=== PATIENT | female | born 1990 | race Caucasian/White ===

== ENCOUNTER → 2018-01-19 09:37 | Outpatient (CLI) | payer BC, SELFPAY ==
--- NOTE | 2018-01-19 09:45 | FL_ITS ---
FL upper GI w air HISTORY: ITS.REASON: EPIGASTRIC PAIN ORDERING PHYSICIAN: Simon Ribera MD PATIENT AGE: 27 years Comparison: None FINDINGS: The swallowing function and as such motility are normal. The esophagus, stomach, and duodenum have an unremarkable appearance. There is no evidence of hiatal hernia. No ulcer or mass evident. No mucosal abnormalities apparent. There is normal peristalsis. The duodenal C-loop is nondisplaced. FLUOROSCOPY TIME : 2 minutes and 23 seconds. IMPRESSION: Negative upper GI
== END ==
PROVIDERS: Family Provider Nurse Practitioner Family; PCP Emergency Medicine; Visit Provider Internal Medicine Adolescent Medicine
DX: R10.13 Epigastric pain (principal)
CPT/HCPCS: 74247

== ENCOUNTER 2020-10-17 21:33 | Emergency (ER) | payer BC, SELFPAY ==
[2020-10-17] VITALS (8 sets, daily range): BP systolic 120–134; BP diastolic 74–97; PULSE 52–77; RESP 16–22; TEMP 36.5–36.7; O2SAT 80–99; BMI 26.1
--- NOTE | 2020-10-17 21:47 | CT_ITS ---
PROCEDURE: CT ABDOMEN PELVIS W CON CLINICAL INDICATION: abd pain The COMPARISON: No exams were available for comparison TECHNIQUE: IV Contrast: 75ML Isovue 370 Oral Contrast None Axial images obtained with sagittal and coronal reformats. All CT scans at the facility use one or more dose reduction, viz: automated exposure control, ma/kV adjustment per patient size (including targeted exams where dose is matched to indication, i.e. head), or iterative reconstruction technique. FINDINGS: LOWER THORAX: No acute finding ABDOMEN & PELVIS: The liver, spleen, adrenal glands, and pancreas have an unremarkable appearance. No radiopaque gallstones evident. There is moderate right hydronephrosis and hydroureter secondary to a 3 mm stone at the right ureterovesical junction. No intestinal obstruction or free air. No evidence of appendicitis. There is a small amount fluid in the cul-de-sac. No acute bony findings are evident. IMPRESSION: 3 mm right ureterovesical junction stone causing moderate right obstructive uropathy. Dictated by: Romero Mello MD 10/18/2020 06:12 Romero Mello MD in [place] 10/18/2020 06:12
[2020-10-17 21:56] LABS: Basophils # 0.1 K/mm3 (0-0.2); Basophils % 0.7 % (0.1-2.0); Eosinophils # 0.3 K/mm3 (0.0-0.4); Eosinophils % 1.8 % (0.1-12.0); Hematocrit 38.1 % (37.0-47.0); Hemoglobin 12.7 g/dL (12.2-16.2); Lymphocytes # 6.5 K/mm3 (0.7-4.5); Mean Corpuscular HGB Conc 33.3 g/dL (31.8-35.4); Mean Corpuscular Hemoglobin 27.4 pg (27.0-31.2); Mean Corpuscular Volume 82.4 fl (81-99); Mean Platelet Volume 7.9 fl (7.4-10.4); Monocytes # 0.9 K/mm3 (0.1-1.0); Monocytes % 6.2 % (1.7-9.3); Neutrophils # 6.1 K/mm3 (1.8-7.8); Neutrophils % 44.3 % (37.0-80.0); Platelet Count 338 K/mm3 (142-424); Red Blood Count 4.63 M/mm3 (4.20-5.40); Red Cell Distribution Width 14.7 % (11.5-17.5); White Blood Count 13.8 K/mm3 (4.8-10.8)
[2020-10-17 22:01] LABS: Microscopic, Urine URINE MICROSCOPIC (MICROSCOPIC)
[2020-10-17 22:03] LABS: Appearance,Urine SL CLOUDY (Clear); Bilirubin,Urine Negative (Negative); Blood, Urine Negative (Negative); Color,Urine YELLOW (Yellow); Glucose,Urine (UA) Negative (Negative); Ketones,Urine Negative (Negative); Leukocyte Esterase,Urine Negative (Negative); Nitrate,Urine Negative (Negative); PH,Urine 6.5 (5.0-8.5); Protein,Urine TRACE (Negative); Specific Gravity, Urine >= 1.030 (1.005-1.030); Urobilinogen,Urine 0.2 EU/dl (0.2)
[2020-10-17 22:06] LABS: HCG Qualitative, Serum Negative (Negative)
[2020-10-17 22:07] LABS: Squamous Epithelial Cell,Urine 20-50 #/hpf (0-5); WBC,Urine Occasional #/hpf (0-3)
[2020-10-17 22:07] LABS: Alanine Aminotransferase 30 U/L (12-78); Albumin/Globulin Ratio 1.2 (1.1-1.8); Alkaline Phosphatase 90 U/L (38-126); Amylase 47 U/L (30-110); Anion Gap 14.5 mEq/L (5-15); Aspartate Amino Transferase 26 U/L (14-36); Bilirubin,Total 0.3 mg/dl (0.2-1.3); Blood Urea Nitrogen 8 mg/dl (7-17); Calcium 9.4 mg/dl (8.4-10.2); Carbon Dioxide 13 mmol/L (22.0-30.0); Chloride 116 mmol/L (98-107); Creatinine Clearance Estimated 125 mL/min (50-200); Estimated Glomerular Filt Rate 84 ml/min (>60); GFR (African American) 101 ML/MIN (>60); Globulin 3.3 g/dL (1.3-3.2); Glucose 123 mg/dl (74-100); Lipase 75 U/L (23-300); Potassium 3.5 mmoL/L (3.5-5.1); Sodium 140 mmol/L (136-145); Total Protein,Serum 7.3 g/dl (6.3-8.2)
[2020-10-17 22:12] LABS: C-Reactive Protein 7.8 mg/L (0-4)
--- NOTE | 2020-10-17 22:15 | HMH.EDNVD ---
ED Disposition Clinical Impression: Renal colic on right side Disposition: Home, Self-Care Condition on Discharge: Good Instructions: DI for Kidney Stones Additional Instructions: fluids and see pcp and urology for follow up Prescriptions: Tamsulosin HCl [Flomax 0.4mg capsule] 0.4 mg PO HS #5 cap Prescription Printed Ketorolac Tromethamine [Toradol 10mg tablet] 10 mg PO Q6H 2 Days #8 tab Prescription Printed Referrals: PCP,No [Non-Staff] - - Critical Care Critical Care Time: No Attestation: On 10/17/20, the high probability of a clinically significant, sudden or life threatening deterioration of the following system(s) required my full and direct attention, intervention and personal management. The time I documented below is in addition to time spent performing reported procedures but includes the following listed in this critical care notation. Medical Decision Making - Medical Records Medical records reviewed: Yes: I reviewed the patient's medical records. - Ketan Inquiry Pt receiving controlled substance: No Vital Signs: 10/17/20 21:34 10/17/20 22:03 10/17/20 22:15 Temperature 97.7 F Temperature Source Oral Pulse Rate 61 64 Pulse Rate [Right] 71 Respiratory Rate 22 Blood Pressure [Right Arm] 134/97 H Blood Pressure Mean [Right Arm] 109 02 Sat by Pulse Oximetry 98 93 L 97 Oxygen Delivery Method Room Air - Lab Data Lab results reviewed: Yes: I reviewed the patient's lab results. Lab Results 10/17/20 21:45: WBC 13.8 H, RBC 4.63, Hgb 12.7, Hct 38.1, MCV 82.4, MCH 27.4, MCHC 33.3, RDW 14.7, Plt Count 338, MPV 7.9, Neut % (Auto) 44.3, Lymph % (Auto) 47.0, [place] % (Auto) 6.2, Eos % (Auto) 1.8, Baso % (Auto) 0.7, Neut # (Auto) 6.1, Lymph # (Auto) 6.5 H, [place] # (Auto) 0.9, Eos # (Auto) 0.3, Baso # (Auto) 0.1, ESR 25 H 10/17/20 21:45: Sodium 140, Potassium 3.5, Chloride 116 H, Carbon Dioxide 13 L, Anion Gap 14.5, BUN 8, Creatinine 0.80, Estimated Creat Clear 125, Estimated GFR 84, Est GFR ( Amer) 101, Glucose 123 H, Calcium 9.4, Total Bilirubin 0.3, AST 26, ALT 30, Alkaline Phosphatase 90, C-Reactive Protein 7.8 H, Total Protein 7.3, Albumin 4.0, Globulin 3.3 H, Albumin/Globulin Ratio 1.2, Amylase 47, Lipase 75, Procalcitonin < 0.030 10/17/20 21:45: Serum HCG, Qual Negative 10/17/20 21:57: Urine Color Yellow, Urine Appearance Sl cloudy, Urine pH 6.5, Ur Specific [place] >= 1.030, Urine Protein Trace, Urine Glucose (UA) Negative, Urine Ketones Negative, Urine Blood Negative, Urine Nitrate Negative, Urine Bilirubin Negative, Urine Urobilinogen 0.2, Ur Leukocyte Esterase Negative, Urine WBC Occasional, Ur Squamous Epith Cells 20-50 10/17/20 22:18: Lactate 1.9 Result diagrams: 10/17/20 21:45 10/17/20 21:45 Orders (Tests/Meds): ED MEDICATIONS Generic Name Dose Route Start Last Admin Trade Name Freq PRN Reason Stop Dose Admin Sodium Chloride 1,000 mls @ 999 mls/hr 10/17/20 22:00 10/17/20 21:51 Sod Chlor 0.9% 1000ml Bag IV 10/17/20 23:00 999 mls/hr .Q1H1M TAURUS Administration Sodium Chloride 8 ml 10/17/20 21:48 Sodium Chloride 0.9% 10ml Vial IV 11/16/20 21:47 NEEDED PRN dilute pepcid Tamsulosin HCl 0.4 mg 10/18/20 23:13 Tamsulosin 0.4mg Capsule PO 10/18/20 23:14 ONCE ONE Discontinued Medications Generic Name Dose Route Start Last Admin Trade Name Freq PRN Reason Stop Dose Admin Famotidine 20 mg 10/17/20 21:48 10/17/20 21:51 Famotidine 20mg/2ml Vial IV 10/17/20 21:49 20 mg ONCE ONE Administration Hydromorphone HCl 1 mg 10/17/20 22:46 10/17/20 22:47 Hydromorphone 2mg/Ml Syringe IV 10/17/20 22:47 1 mg ONCE ONE Administration Iopamidol 75 ml 10/17/20 23:02 10/17/20 23:03 Iopamidol-370 (76%);100ml Bottle IV 10/17/20 23:03 75 ml ONCE ONE Administration Ketorolac Tromethamine 30 mg 10/17/20 21:48 10/17/20 21:51 Ketorolac 30mg/Ml Vial IV 10/17/20 21:49 30 mg ONCE ONE Administrati
[2020-10-17 22:21] LABS: Erythrocyte Sedimentation Rate 25 mm/hr (0-20)
[2020-10-17 22:34] LABS: Procalcitonin < 0.030 ng/mL (0.0-2.0)
[2020-10-17 22:36] LABS: Lactic Acid 1.9 mmol/L (0.7-2.1)
== END 2020-10-17 23:28 | disposition home or self-care (01) ==
PROVIDERS: Emergency Provider Emergency Medicine; PCP Internal Medicine Adolescent Medicine
DX: N23 Unspecified renal colic (principal); F33.1 Major depressive disorder, recurrent, moderate
CPT/HCPCS: 74177; 80053; 81001; 82150; 83605; 83690; 84145; 84703; 85025; 85651; 86140; 87040; 87077; 87186; 96375; 99283; J2405; Q9967

== ENCOUNTER → 2021-09-08 12:15 | Outpatient (CLI) | payer BC, SELFPAY ==
--- NOTE | 2021-09-08 12:23 | XR_ITS ---
FINAL REPORT CLINICAL HISTORY: right hip pain, buttock pain, hx of broken coccyx, fall yesterday FINDINGS: 2 views of the right hip with an AP pelvis were obtained. There is no acute fracture or dislocation. The joint spaces are intact. There are no soft tissue abnormalities. IMPRESSION: No acute process. Reviewed, Interpreted and Dictated by Kike Verde III, MD Transcribed by Brenden Patel Authenticated by Kike Verde III, MD on 09/08/2021 01:26:51 PM [facility]
--- NOTE | 2021-09-08 12:23 | XR_ITS ---
FINAL REPORT CLINICAL HISTORY: RT HIP PAIN,BUTTOCK PAIN, fall yesterday, hx of broken coccyx FINDINGS: SACROILIAC JOINTS 4 views were obtained. There is no acute fracture or dislocation. The joint spaces are intact. There is no soft tissue abnormality. IMPRESSION: No acute bony abnormality. Reviewed, Interpreted and Dictated by Kike Verde III, MD Transcribed by Brenden Patel Authenticated by Kike Verde III, MD on 09/08/2021 01:26:50 PM [facility]
== END ==
PROVIDERS: PCP Internal Medicine Adolescent Medicine; Visit Provider Internal Medicine Adolescent Medicine
DX: M25.551 Pain in right hip (principal); M79.18 Myalgia, other site
CPT/HCPCS: 72202; 73502

== ENCOUNTER → 2021-11-02 14:58 | Outpatient (CLI) | payer BC, SELFPAY ==
--- NOTE | 2021-11-02 14:58 | US_ITS ---
FINAL REPORT CLINICAL HISTORY: Pelvic pain and Dysmenorrhea FINDINGS: Transvaginal sonographic images of the pelvis were obtained. The uterus retroverted measuring 7.3 x 4.0 x 4.6 cm. The right ovary measures 3.1 x 2.2 x 2.7 cm. The left ovary measures 2.6 x 1.5 x 2.0 cm. The endometrium measures 5 mm. There is a small amount of free fluid, may be physiologic or reactive. Multiple small follicles are identified, may represent polycystic ovarian syndrome. IMPRESSION: Findings may represent polycystic ovarian syndrome. Reviewed, Interpreted and Dictated by Kike Verde III, MD Transcribed by Linda Sepulveda Authenticated by Kike Verde III, MD on 11/03/2021 02:25:[address] [facility]
== END ==
LOC: RAD 14:58
PROVIDERS: PCP Internal Medicine Adolescent Medicine; Visit Provider Nurse Practitioner Obstetrics & Gynecology
DX: R10.2 Pelvic and perineal pain (principal); N94.6 Dysmenorrhea, unspecified
CPT/HCPCS: 76830

== ENCOUNTER 2022-02-22 13:41 | Emergency (ER) | payer BC, SELFPAY ==
--- NOTE | 2022-02-22 14:27 | HMH.EDUTC ---
[facility] Disposition Clinical Impression: UTI (urinary tract infection) Qualifiers: Urinary tract infection type: site unspecified Hematuria presence: with hematuria Qualified Code(s): N39.0 - Urinary tract infection, site not specified Disposition: Home, Self-Care Condition on Discharge: Good Instructions: Urine Culture, DI for Urinary Tract Infection (UTI), Phenazopyridine Additional Instructions: Drink plenty of fluids. Take tylenol or ibuprofen for pain or fever. Take the medications as directed. Follow up with your regular doctor. GO TO THE ER FOR ANY WORSENING SYMPTOMS The pyridium will make your urine turn orange, this is an expected side effect. It will stain your clothes if it comes into contact with them. We will culture the urine. That will tell what bacteria is causing your infection and which antibiotics will treat it best. Sometimes the first antibiotic we prescribe turns out to not work against different bacteria. So, make sure you follow up within 3 days if you are not getting better. Prescriptions: Ondansetron [Zofran 4mg ODT] 4 mg PO Q8HP PRN #20 tab PRN Reason: Nausea Transmission Status: Received by [facility] #[id number] Nitrofurantoin Monohyd/M-Cryst [Macrobid 100 mg Capsule] 100 mg PO BID 5 Days #10 cap Transmission Status: Received by [facility] # Phenazopyridine HCl [Pyridium 200mg Tablet] 200 pow PO TID #6 tab Transmission Status: Received by [facility] #[id number] Referrals: Simon Ribera MD [Primary Care Provider] - Time of Disposition: 15:00 Medical Decision Making - Medical Records Medical records reviewed: No: I reviewed the patient's medical records. - Ketan Inquiry Pt receiving controlled substance: No Vital Signs: 02/22/22 14:33 02/22/22 15:04 Temperature 98.8 F 98.8 F Temperature Source Oral Pulse Rate 69 Pulse Rate [Left] 69 Respiratory Rate 18 18 Blood Pressure 122/80 Blood Pressure [Right Arm] 122/80 Blood Pressure Mean [Right Arm] 94 02 Sat by Pulse Oximetry 100 - Lab Data Lab results reviewed: Yes: I reviewed the patient's lab results. Lab Results 02/22/22 14:42: Urine Color Yellow, Urine Appearance Cloudy, Urine pH 6.0, Ur Specific [place] >= 1.030, Urine Protein Negative, Urine Glucose (UA) Negative, Urine Ketones Negative, Urine Blood Trace, Urine Nitrate Negative, Urine Bilirubin Negative, Urine Urobilinogen 0.2, Ur Leukocyte Esterase 1+ A Orders (Tests/Meds): ORDERS Category Date Time Status Urine Culture Stat Micro 02/22/22 14:42 Received [facility] HPI - General Stated complaint: possible uti Time Seen by Provider: 02/22/22 14:27 - History of Present Illness Provider Complaint: She states that for the past 2 days she has had dysuria and low back pain. She denies any fever or chills. - Related Data Previous Rx's Medication Instructions Recorded Ketorolac Tromethamine [Toradol 10 mg PO Q6H 2 Days #8 tab 10/17/20 10mg tablet] Tamsulosin HCl [Flomax 0.4mg 0.4 mg PO HS #5 cap 10/17/20 capsule] phentermine 37.5 mg tablet 37.5 mg PO DAILY #30 tab 01/20/21 prednisone 20 mg tablet 20 mg PO BID 5 Days #10 tab 04/14/21 triamcinolone acetonide 0.5 % 1 applic TOPICAL BID 7 Days #15 g 04/14/21 topical cream drospirenone 3 mg-ethinyl 1 tab PO DAILY #84 tab 09/13/21 estradiol 0.02 mg tablet Nitrofurantoin Monohyd/M-Cryst 100 mg PO BID 5 Days #10 cap 02/22/22 [Macrobid 100 mg Capsule] Ondansetron [Zofran 4mg ODT] 4 mg PO Q8HP PRN #20 tab 02/22/22 Phenazopyridine HCl [Pyridium 200 pow PO TID #6 tab 02/22/22 200mg Tablet] Allergies Allergy/AdvReac Type Severity Reaction Status Date / Time No Known Allergies Allergy Verified 02/22/22 14:37 [facility] History - Hepatitis A Screen Attestation statement:: This patient has been screened for Hepatitis A risk factors. I have reviewed the patient's past medical history: Yes Medical Histor
[2022-02-22 14:33] VITALS: BP 122/80; PULSE 69; RESP 18; TEMP 37.1; O2SAT 100; BMI 23.6
[2022-02-22 15:04] VITALS: BP 122/80; PULSE 69; RESP 18; TEMP 37.1
[2022-02-22 15:44] LABS: Apearance,Urine Cloudy (Clear); Color,Urine Yellow (Yellow); Glucose,Urine (UA) Negative (Negative); Protein,Urine Negative (Negative); Specific Gravity, Urine >= 1.030 (1.005-1.030)
[2022-02-22 15:45] LABS: Bilirubin,Urine Negative (Negative); Blood, Urine Trace (Negative); Ketones,Urine Negative (Negative); UTC Leukocyte Esterase,Urine 1+ (Negative); UTC Nitrate,Urine Negative (Negative); Urobilinogen,Urine 0.2 EU/dl (0.2)
== END 2022-02-22 15:24 | disposition home or self-care (01) ==
PROVIDERS: Emergency Provider Nurse Practitioner Family; PCP Internal Medicine Adolescent Medicine
DX: N39.0 Urinary tract infection, site not specified (principal); M54.50 Low back pain, unspecified; G43.909 Migraine, unspecified, not intractable, without status migrainosus; F32.A Depression, unspecified; Z79.52 Long term (current) use of systemic steroids; Z79.899 Other long term (current) drug therapy
CPT/HCPCS: 81003; 87086; 99213; G0463

== ENCOUNTER → 2022-08-08 09:19 | Outpatient (CLI) | payer BC, SELFPAY ==
[2022-08-08 10:01] LABS: Basophils # 0.1 K/mm3 (0-0.2); Eosinophils # 0.2 K/mm3 (0.0-0.4); Eosinophils % 1.8 % (0.1-12.0); Hematocrit 43.5 % (37.0-47.0); Hemoglobin 13.9 g/dL (12.2-16.2); Lymphocytes # 3.2 K/mm3 (0.7-4.5); Lymphocytes % 29.9 % (10-50); Mean Corpuscular HGB Conc 31.9 g/dL (31.8-35.4); Mean Corpuscular Hemoglobin 28.5 pg (27.0-31.2); Mean Corpuscular Volume 89.4 fl (81-99); Mean Platelet Volume 7.8 fl (7.4-10.4); Monocytes # 0.7 K/mm3 (0.1-1.0); Monocytes % 6.2 % (1.7-9.3); Neutrophils # 6.5 K/mm3 (1.8-7.8); Neutrophils % 61.2 % (37.0-80.0); Platelet Count 403 K/mm3 (142-424); Red Blood Count 4.86 M/mm3 (4.20-5.40); White Blood Count 10.6 K/mm3 (4.8-10.8)
[2022-08-08 10:15] LABS: Alanine Aminotransferase 21 U/L (12-78); Albumin Level 4.2 g/dl (3.5-5.0); Albumin/Globulin Ratio 1.2 (1.1-1.8); Alkaline Phosphatase 82 U/L (38-126); Anion Gap 12.6 mEq/L (5-15); Aspartate Amino Transferase 26 U/L (14-36); Bilirubin,Total 0.5 mg/dl (0.2-1.3); Blood Urea Nitrogen 10 mg/dl (7-17); Calcium 8.6 mg/dl (8.4-10.2); Carbon Dioxide 21 mmol/L (22.0-30.0); Chloride 109 mmol/L (98-107); Estimated Glomerular Filt Rate 83 ml/min (>60); GFR (African American) 100 ML/MIN (>60); Globulin 3.6 g/dL (1.3-3.2); Glucose 103 mg/dl (74-100); Potassium 3.6 mmoL/L (3.5-5.1); Sodium 139 mmol/L (136-145); Total Protein,Serum 7.8 g/dl (6.3-8.2)
[2022-08-08 10:35] LABS: HCG,Quantitative < 2 mIU/ml (0-5.42)
== END ==
LOC: LAB 09:20
PROVIDERS: PCP Internal Medicine Adolescent Medicine; Visit Provider Nurse Practitioner Obstetrics & Gynecology
DX: N94.6 Dysmenorrhea, unspecified (principal); Z01.812 Encounter for preprocedural laboratory examination
CPT/HCPCS: 36415; 80053; 84702; 85025

== ENCOUNTER 2022-08-10 07:03 | Day surgery (SDC) | payer BC, SELFPAY ==
[2022-08-10] VITALS (10 sets, daily range): BP systolic 95–126; BP diastolic 47–87; PULSE 55–83; RESP 10–18; TEMP 36.3–43; O2SAT 96–99; BMI 25.9
--- NOTE | 2022-08-10 08:02 | EXP.ANES.CKL ---
[facility] Disclaimer: The information contained in this section may have been updated after the patient was seen, as this information can be updated by other users. Medical History Hx of gastric ulcer Migraines Surgical History Hx of dilation and curettage Hx of tubal ligation Family History Mother Breast cancer Mother Family history of cardiac arrhythmia Grandmother Family history of diabetes mellitus Social History Smoking Status: Never smoker alcohol intake: current substance use type: denies use current occupational status: employed Travel in the last 8 weeks: None household members: family housing: house caffeine: Yes [facility] Anesthesia Checklist Patient Identification Patient Identification: Arm Band and Verbal (Name & ) Structural Data Admitted From: Home Planned Operative Procedure/s: D/C NPO Status Verified Time NPO: 00:00 Additional verifications Anesthesia Reactions: No Hx Blood Transfusions: No Blood Transfusion Reaction: No Airway Assessment C-Spine Mobility Assessed: Yes TMJ Mobility Assessed: Yes Dentition: Good Dentition Neurological Assessment Level of Consciousness: Awake Hx Seizures: No Numbness or tingling in extremities: No Anesthesia Plan Anesthesia Risk discussed: Yes Anesthesia Plan: Verified ASA Class: I Anesthesia Type: MAC
--- NOTE | 2022-08-10 09:34 | P.PNANES_ITS ---
[facility] Anesthesia Record Part I Anesthesia Record I Intake, IV Amount: 800 Estimated blood loss (mL): 50 Urine output (mL): 0 Blood Pressure: 111/72 SaO2: 96 Pulse Rate: 56 Respiratory Rate: 10 Temperature: 98.2 F Patient is:: Drowsy and Oral/Nasal airway Stable to PACU at:: 09:31
--- NOTE | 2022-08-10 09:36 | EXP.OP.NOTE ---
Date of procedure: 08/10/22 Pre-op Diagnosis:: Menorrhagia Post-op Diagnosis:: Menorrhagia Procedure performed:: Hysteroscopy, dilation and curettage, NovaSure ablation Surgeon:: Pranav Elizondo MD ELECTRIFIER OPERATOR:: William Mishra Anesthesia: LMA Estimated blood loss (mL): 50 Clinical Note:: She is a 32-year-old lady who complains of extremely heavy periods. After having discussed the risk and benefits we elected perform a hysteroscopy, D&C and NovaSure ablation. Operative findings:: She had an anteverted normal uterus. The endometrium appeared normal. Tubal ostia were both seen. The uterus sounded to 8 cm, the length of the endometrial cavity was 5.5 cm and the width was 4 cm. Operative note:: She was taken to the operating room where LMA anesthesia was found be adequate. She was prepped and draped in the normal sterile fashion in the lithotomy position. A weighted speculum was placed in the vagina and the anterior lip of the cervix was grasped with a tenaculum. The cervix was then dilated to approximately 6 mm. I then inserted a hysteroscope into the uterine cavity and the findings were as previously dictated. I then performed a gentle curettage with a medium curette. I then sounded the uterus and determine the length of the uterus. Length was 5.5 cm and the width was 4 cm. I then inserted the NovaSure device and determine the width of the endometrial cavity. This was placed into the NovaSure device. I then ran the device through its program. I further inspected the endometrial cavity and was found to be completely charred. I then injected 30 cc of 0.5% ropivacaine at the 3:00, 5:00, 7:00, and 9:00 positions of the cervix. She tolerated procedure well and was taken to the recovery room in excellent condition. All sponge and instrument counts were correct. The estimated blood loss was less than 50 cc. Condition: stable Disposition: PACU Specimens:: Endometrial curettings Complications:: None
--- NOTE | 2022-08-12 10:52 | EXP.ANES.II ---
[facility] Anesthesia Record Part II Anesthesia Record Part II Discharge Time: 10:00 Destination: Surgical Day Care (OP Surgery) PACU nurse assessment reviewed?: Yes Patient Condition:: Good Anesthesia Complications:: None Swallowing reflex intact?: Yes Cyanosis?: No Blood Pressure: 102/73 Pulse Rate: 75 Temperature: 98.1 F Mental Status: Alert & Oriented Pain level:: 0 Nausea and/or vomitting:: None Intake, IV Amount: 0
[2022-08-12 10:53] VITALS: BP 102/73; PULSE 75; TEMP 36.7
== END 2022-08-10 10:33 | disposition home or self-care (01) ==
PROVIDERS: PCP Internal Medicine Adolescent Medicine; Visit Provider Nurse Practitioner Obstetrics & Gynecology
PROC: 0U5B8ZZ Destruction of Endometrium, Via Natural or Artificial Opening Endoscopic (ICD-10-PCS; CPT 58563; principal; 2022-08-10 08:45)
DX: N92.0 Excessive and frequent menstruation with regular cycle (principal); N94.6 Dysmenorrhea, unspecified; N84.0 Polyp of corpus uteri; Z79.899 Other long term (current) drug therapy
CPT/HCPCS: 58563; 88305; 96374; J2405

== ENCOUNTER 2023-12-12 08:45 | Emergency (ER) | payer BC, SELFPAY ==
[2023-12-12 09:25] VITALS: BP 130/74; PULSE 65; RESP 18; TEMP 36.8; O2SAT 98; BMI 28.1
--- NOTE | 2023-12-12 09:29 | ED_ITS ---
Discharge Plan Disposition Patient Disposition: Home, Self-Care Condition: Good Prescriptions Prescriptions: New amoxicillin 875 mg tablet 875 mg PO Q12H Qty: 20 0RF methylprednisolone 4 mg Tablets,Dose Pack 4 mg PO DIRECTED 6 Days Qty: 21 0RF Rx Instructions: Take 1 pack as directed for 6 days [id number]-NP [Bromfed DM] 2-30-10 mg/5 mL Syrup 5 ml PO Q6H PRN (Reason: Cough) Qty: 240 0RF No Action epinephrine [EpiPen 2-Samuel] 0.3 mg/0.3 mL auto-injector 0.3 mg IM Q5-15M PRN (Reason: hypersensitivity reaction) Qty: 2 0RF Rx Instructions: do not exceed 3 doses per episode topiramate [Trokendi XR] 200 mg Capsule,Extended Release 24hr 300 mg PO HS Referrals Follow up/Referrals: Simon Ribera MD [Primary Care Provider] - See instructions Activity Restrictions/Add. Instructions Additional Instructions/Restrictions: Drink plenty of fluids. Take tylenol or ibuprofen for pain or fever. Take the medications as directed. Follow up with your regular doctor. GO TO THE ER FOR ANY WORSENING SYMPTOMS Clinical Impressions Clinical Impression: Pharyngitis Stand Alone Forms Stand Alone Forms: Work/School Release Instructions Patient Instructions: Sore Throat, DI for Pharyngitis/Tonsillopharyngitis -- Adult Discharge ED Provider: Ger Cervantes [facility] General Stated complaint: sore throat Time Seen by Provider: 12/12/23 09:28 Related Data Home Medications Medication Instructions Recorded Confirmed topiramate 200 mg capsule,extended 300 mg PO HS migraines/nervous tic 08/04/22 12/12/23 release 24 hr (Trokendi XR) Previous Rx's Medication Instructions Recorded epinephrine 0.3 mg/0.3 mL 0.3 mg (0.3 mL) IM Q5-15M PRN 01/19/23 injection, auto-injector (EpiPen hypersensitivity reaction #2 ea 2-Samuel) amoxicillin 875 mg tablet 875 mg PO Q12H #20 tabs 12/12/23 cfigldrdjsmtvbi-hfzlliojsjbsemj-JU 5 ml PO Q6H PRN Cough #240 mL 12/12/23 2 mg-30 mg-10 mg/5 mL oral syrup (Bromfed DM) methylprednisolone 4 mg tablets in 4 mg PO DIRECTED 6 days #21 tabs 12/12/23 a dose pack Allergies Allergy/AdvReac Type Severity Reaction Status Date / Time No Known Allergies Allergy Verified 12/12/23 09:36 [facility] Disclaimer: The information contained in this section may have been updated after the patient was seen, as this information can be updated by other users. Medical History Hx of gastric ulcer Migraines Pelvic pain Vaginal discharge Surgical History History of endometrial ablation History of hysteroscopy Hx of dilation and curettage Hx of tubal ligation Family History Mother Breast cancer Mother Family history of cardiac arrhythmia Grandmother Family history of diabetes mellitus Social History Smoking Status: Never smoker alcohol intake: current alcohol intake frequency: holidays/special occasions only substance use type: denies use current occupational status: employed Travel in the last 8 weeks: None household members: family housing: house caffeine: Yes ROS Obtained: Yes All systems reviewed & no additional complaints except as documented Constitutional Constitutional: Reports chills and Reports fever(s) Eyes Eyes: Denies eye discharge ENT Ears, Nose, Mouth, and Throat: Reports as per HPI Cardiovascular Cardiovascular: Denies chest pain Respiratory Respiratory: Denies chest congestion and Reports cough Gastrointestinal Gastrointestingal: Reports nausea; Denies abdominal pain, constipation, cramping, diarrhea or vomiting Musculoskeletal Musculoskeletal: Denies arthralgias Integumentary/Breasts Skin/Breast: Denies rash Neurologic Neurologic: Denies paresthesias Physical Exam General General appearance: alert and in no apparent distress Head Head exam: atraumatic, normocephalic and normal inspection Eye Eye exam: Present normal appearance, PERRL and EOMI ENT ENT exam: Present mucous membranes moist and normal external ear exam Expanded ENT Exam TM/Canal exam: Bilateral TM: erythema and bulging Nose exam: Absent sinus tenderness Mouth exam: Present normal external inspection; Absent drooling Teeth exam: Present normal inspection Throat exam: Present tonsillar erythema, tonsillomegaly and tonsillar exudate Neck Neck exam: Present normal inspection, full ROM and trachea midline; Absent tenderness, meningismus or lymphadenopathy Chest Chest inspection: Present normal inspection and symmetric chest wall rise; Ab sent tenderness Respiratory Respiratory exam: Present normal lung sounds bilaterally; Absent respiratory distress, wheezes, stridor or accessory muscle use Cardiovascular Cardiovascular exam: Present regular rate and normal rhythm; Absent systolic murmur or diastolic murmur Abdominal Exam Abdominal exam: Present soft and normal bowel sounds; Absent distention, tenderness, guarding, rebound or rigidity Extremities Exam Extremities exam: Present normal inspection and normal capillary refill; Absent calf tenderness Back Exam Back exam: Present normal inspection and full ROM; Absent tenderness, CVA tenderness (R) or CVA tenderness (L) Neurological Exam Neurological exam: Present alert, oriented X3 and CN II-XII intact Psychiatric Psychiatric exam: Present normal affect and normal mood Skin Skin exam: Present warm, dry, intact and normal color Medical Decision Making Medical Records Medical records reviewed: No I reviewed the patient's medical records. Ketan Inquiry Pt receiving controlled substance: No Lab Data Lab results reviewed: Yes I reviewed the patient's lab results.
[2023-12-12 09:56] LABS: UTC Strep Screen (Rapid) Negative (Negative)
[2023-12-12 10:09] VITALS: BP 130/74; PULSE 65; RESP 18; TEMP 36.8; O2SAT 98
== END 2023-12-12 10:09 | disposition home or self-care (01) ==
PROVIDERS: Emergency Provider Nurse Practitioner Family; PCP Internal Medicine Adolescent Medicine
DX: J02.9 Acute pharyngitis, unspecified (principal)
CPT/HCPCS: 87880; 99212; 99214; G0463

== ENCOUNTER 2024-01-14 10:55 | Emergency (ER) | payer BC, SELFPAY ==
[2024-01-14 11:05] VITALS: BP 128/74; PULSE 66; RESP 19; TEMP 36.8; O2SAT 99; BMI 29.0
--- NOTE | 2024-01-14 11:20 | ED_ITS ---
Discharge Plan Disposition Patient Disposition: Home, Self-Care Condition: Good Prescriptions Prescriptions: New azithromycin [Zithromax] 250 mg tablet 250 mg PO UD DOSE PK Qty: 6 0RF Rx Instructions: Take two (2) tablets today, then one (1) tablet days #2 thru #5 triamcinolone acetonide 0.1 % cream 1 applic topical BID PRN (Reason: itching) Qty: 30 0RF methylprednisolone 4 mg Tablets,Dose Pack 4 mg PO DIRECTED 6 Days Qty: 21 0RF Rx Instructions: Take 1 pack as directed for 6 days No Action epinephrine [EpiPen 2-Samuel] 0.3 mg/0.3 mL auto-injector 0.3 mg IM Q5-15M PRN (Reason: hypersensitivity reaction) Qty: 2 0RF Rx Instructions: do not exceed 3 doses per episode topiramate [Trokendi XR] 200 mg Capsule,Extended Release 24hr 200 mg PO HS Referrals Follow up/Referrals: Simon Ribera MD [Primary Care Provider] - See instructions Activity Restrictions/Add. Instructions Additional Instructions/Restrictions: Try to identify and avoid contact with the offending substance. Don't start the oral steroids until tomorrow. Don't put the topical steroids (triamcinolone) on your face or your groin. Follow up with your regular doctor. GO TO THE ER FOR ANY WORSENING SYMPTOMS OR CONCERNS Clinical Impressions Clinical Impression: Poison sasha dermatitis, Pharyngitis Instructions Patient Instructions: Triamcinolone Topical, Methylprednisolone, Azithromycin, Dexamethasone Injection Discharge ED Provider: [place] [facility] [place] General Stated complaint: rash on arms, ear, leg sore throat Mode of Arrival: Ambulatory Source of Information: Patient Limitations: No Limitations Time Seen by Provider: 01/14/24 11:18 Description of Symptoms (Recalled from Triage Doc. by RN): PATIENT C/O POISON SASHA RASH THAT STARTED MONDAY AND GOT WORSE YESTERDAY. PATIENT ALSO C/O SORE THROAT THAT HAS BEEN ON-GOING FOR APPROX 3 WEEKS HEENT Symptoms (Recalled from RN notes): Yes Resp Symptoms (Recalled from RN notes): No Skin Symptoms (Recalled from RN notes): Yes MS Symptoms (Recalled from RN notes): No Functional Status (Recalled from RN notes): WNL History of Present Illness Provider Complaint: She states that she has 2 complaints today. She has had a sore throat for the past 2 days. She has been exposed to strep throat. She is also having an itchy rash on her arms and legs. She has been working around [employer]. Related Data Home Medications Medication Instructions Recorded Confirmed topiramate 200 mg capsule,extended 200 mg PO HS migraines/nervous tic 08/04/22 01/14/24 release 24 hr (Trokendi XR) Previous Rx's Medication Instructions Recorded epinephrine 0.3 mg/0.3 mL 0.3 mg (0.3 mL) IM Q5-15M PRN 01/19/23 injection, auto-injector (EpiPen hypersensitivity reaction #2 ea 2-Samuel) azithromycin 250 mg tablet 250 mg PO UD DOSE PK #6 tabs 01/14/24 (Zithromax) methylprednisolone 4 mg tablets in 4 mg PO DIRECTED 6 days #21 tabs 01/14/24 a dose pack triamcinolone acetonide 0.1 % 1 applic topical BID PRN itching 01/14/24 topical cream #30 grams Allergies Allergy/AdvReac Type Severity Reaction Status Date / Time No Known Allergies Allergy Verified 01/02/24 14:37 Worker's Comp Is this a Worker's Comp case?: No [facility] Disclaimer: The information contained in this section may have been updated after the patient was seen, as this information can be updated by other users. Medical History Family history of breast cancer in first degree relative PCOS (polycystic ovarian syndrome) Menorrhagia Dysmenorrhea Renal colic on right side Vaginal discharge Pelvic pain Hx of gastric ulcer Migraines Surgical History History of endometrial ablation History of hysteroscopy Hx of tubal ligation Hx of dilation and curettage Family History Mother Breast cancer Mother Family history of cardiac arrhythmia Grandmother Family history of diabetes mellitus Social History Smoking Status: Never smoker alcohol intake: current alcohol intake frequency: holidays/special occasions only substance use type: denies use current occupational status: employed Travel in the last 8 weeks: None household members: family housing: house caffeine: Yes ROS Obtained: Yes All systems reviewed & no additional complaints except as documented Constitutional Constitutional: Reports chills and Reports fever(s) Eyes Eyes: Denies eye discharge ENT Ears, Nose, Mouth, and Throat: Reports as per HPI Cardiovascular Cardiovascular: Denies chest pain Respiratory Respiratory: Denies chest congestion and Reports cough Gastrointestinal Gastrointestingal: Reports nausea; Denies abdominal pain, constipation, cramping, diarrhea or vomiting Musculoskeletal Musculoskeletal: Denies arthralgias Integumentary/Breasts Skin/Breast: Reports as per HPI and Reports rash Neurologic Neurologic: Denies paresthesias Physical Exam General General appearance: alert and in no apparent distress Head Head exam: atraumatic, normocephalic and normal inspection Eye Eye exam: Present normal appearance, PERRL and EOMI ENT ENT exam: Present mucous membranes moist and normal external ear exam Expanded ENT Exam TM/Canal exam: Bilateral TM: erythema and bulging Nose exam: Absent sinus tenderness Mouth exam: Present normal external inspection; Absent drooling Teeth exam: Present normal inspection Throat exam: Present tonsillar erythema, tonsillomegaly and tonsillar exudate Neck Neck exam: Present normal inspection, full ROM and trachea midline; Absent tenderness, meningismus or lymphadenopathy Chest Chest inspection: Present normal inspection and symmetric chest wall rise; Absent tenderness Respiratory Respiratory exam: Present normal lung sounds bilaterally; Absent respiratory distress, wheezes, stridor or accessory muscle use Cardiovascular Cardiovascular exam: Present regular rate and normal rhythm; Absent systolic murmur or diastolic murmur Abdominal Exam Abdominal exam: Present soft and normal bowel sounds; Absent distention, tenderness, guarding, rebound or rigidity Extremities Exam Extremities exam: Present normal inspection and normal capillary refill; Absent calf tenderness Back Exam Back exam: Present normal inspection and full ROM; Absent tenderness, CVA tenderness (R) or CVA tenderness (L) Neurological Exam Neurological exam: Present alert, oriented X3 and CN II-XII intact Psychiatric Psychiatric exam: Present normal affect and normal mood Skin Skin exam: Present rash Medical Decision Making Medical Records Medical records reviewed: No I reviewed the patient's medical records. Ketan Inquiry Pt receiving controlled substance: No Vital Signs: 01/14/24 11:05 Temperature 98.3 F Temperature Source Oral Pulse Rate [Left Brachial] 66 Respiratory Rate 19 Blood Pressure [Left Arm] 128/74 Blood Pressure Mean [Left Arm] 92 Blood Pressure Source [Left Arm] Automatic Cuff Blood Pressure Position [Left Arm] Sitting 02 Sat by Pulse Oximetry 99 Oxygen Delivery Method Room Air Lab Data Lab results reviewed: Yes I reviewed the patient's lab results.
[2024-01-14 11:24] LABS: UTC Strep Screen (Rapid) Negative (Negative)
[2024-01-14] MEDS: DEXAMETHASONE 4MG/ML 1ML VIAL 8 MG IM (11:37)
[2024-01-14 11:41] VITALS: BP 128/74; PULSE 66; RESP 19; TEMP 36.8; O2SAT 99
--- NOTE | 2024-01-23 09:46 | PC.NURSE ---
Reviewed strep confirmation culture is negative. No further action is required.
== END 2024-01-14 11:48 | disposition home or self-care (01) ==
PROVIDERS: Emergency Provider Nurse Practitioner Family; PCP Internal Medicine Adolescent Medicine
DX: J02.9 Acute pharyngitis, unspecified (principal); L23.7 Allergic contact dermatitis due to plants, except food; W60.XXXA Contact with nonvenomous plant thorns and spines and sharp leaves, initial encounter
CPT/HCPCS: 87880; 96372; 99212; 99214; G0463; J1100

== ENCOUNTER 2024-06-29 14:23 | Emergency (ER) | payer BC, SELFPAY ==
--- NOTE | 2024-06-29 15:02 | ED_ITS ---
Discharge Plan Disposition Patient Disposition: Home, Self-Care Condition: Good Prescriptions Prescriptions: New azithromycin [Zithromax] 250 mg tablet 250 mg PO UD DOSE PK Qty: 6 0RF Rx Instructions: Take two (2) tablets today, then one (1) tablet days #2 thru #5 methylprednisolone 4 mg Tablets,Dose Pack 4 mg PO DIRECTED 6 Days Qty: 21 0RF Rx Instructions: Take 1 pack as directed for 6 days [id number] [Bromfed DM] 2-30-10 mg/5 mL Syrup 5 ml PO Q6H PRN (Reason: Cough) Qty: 240 0RF No Action topiramate [Trokendi XR] 200 mg Capsule,Extended Release 24hr 200 mg PO HS Referrals Follow up/Referrals: Simon Ribera MD [Primary Care Provider] - See instructions Activity Restrictions/Add. Instructions Additional Instructions/Restrictions: Drink plenty of fluids. Take tylenol or ibuprofen for pain or fever. Take the medications as directed. Follow up with your regular doctor. GO TO THE ER FOR ANY WORSENING SYMPTOMS Clinical Impressions Clinical Impression: Sinusitis Instructions Patient Instructions: Sinusitis, DI for Sinusitis Print Language Print Language: Danish Discharge ED Provider: Ger Cervantes [facility] General Stated complaint: congestion cough headache Time Seen by Provider: 06/29/24 15:02 Related Data Home Medications ?Medication ?Instructions ?Recorded ?Confirmed topiramate 200 mg capsule,extended 200 mg PO HS migraines/nervous tic 08/04/22 06/29/24 release 24 hr (Trokendi XR) Previous Rx's ?Medication ?Instructions ?Recorded azithromycin 250 mg tablet 250 mg PO UD DOSE PK #6 tabs 06/29/24 (Zithromax) [id number]-[id number] 5 ml PO Q6H PRN Cough #240 mL 06/29/24 2 mg-30 mg-10 mg/5 mL oral syrup (Bromfed DM) methylprednisolone 4 mg tablets in 4 mg PO DIRECTED 6 days #21 tabs 06/29/24 a dose pack Allergies Allergy/AdvReac Type Severity Reaction Status Date / Time No Known Allergies Allergy Verified 01/02/24 14:37 [facility] Disclaimer: The information contained in this section may have been updated after the patient was seen, as this information can be updated by other users. Medical History Family history of breast cancer in first degree relative PCOS (polycystic ovarian syndrome) Menorrhagia Dysmenorrhea Renal colic on right side Vaginal discharge Pelvic pain Hx of gastric ulcer Migraines Surgical History History of endometrial ablation History of hysteroscopy Hx of tubal ligation Hx of dilation and curettage Family History Mother Breast cancer Mother Family history of cardiac arrhythmia Grandmother Family history of diabetes mellitus Social History Smoking Status: Never smoker alcohol intake: current alcohol intake frequency: holidays/special occasions only substance use type: denies use current occupational status: employed household members: family housing: house caffeine: Yes ROS Obtained: Yes All systems reviewed & no additional complaints except as documented Constitutional Constitutional: Reports poor appetite Eyes Eyes: Reports system reviewed and no additional complaints, except as documented ENT Ears, Nose, Mouth, and Throat: Reports as per HPI Cardiovascular Cardiovascular: Reports system reviewed and no additional complaints, except as documented and Denies chest pain Respiratory Respiratory: Denies shortness of breath, Denies chest congestion, Reports cough, Denies stridor and Denies wheezing Gastrointestinal Gastrointestingal: Reports system reviewed and no additional complaints, except as documented; Denies abdominal pain, diarrhea or vomiting Musculoskeletal Musculoskeletal: Reports system reviewed and no additional complaints, except as documented and Denies arthralgias Integumentary/Breasts Skin/Breast: Reports system reviewed and no additional complaints, except as documented and Denies rash Neurologic Neurologic: Denies paresthesias Allergic/Immunologic Allergic/Immunologic: Denies wheezing Physical Exam General General appearance: alert and in no apparent distress Eye Eye exam: Present normal appearance, PERRL and EOMI ENT ENT exam: Present mucous membranes moist and normal external ear exam Expanded ENT Exam External ear exam: Present normal external inspection TM/Canal exam: Bilateral TM: erythema and bulging Nose exam: Absent sinus tenderness Nasal speculum exam: Bilateral: normal Mouth exam: Present normal external inspection; Absent drooling Teeth exam: Present normal inspection Throat exam: Present tonsillar erythema and tonsillomegaly Neck Neck exam: Present normal inspection, full ROM and trachea midline; Absent tenderness, lymphadenopathy or thyromegaly Chest Chest inspection: Present normal inspection and symmetric chest wall rise; Absent tenderness or rash Respiratory Respiratory exam: Present normal lung sounds bilaterally; Absent respiratory distress, wheezes, stridor or accessory muscle use Cardiovascular Cardiovascular exam: Present regular rate, normal rhythm and normal heart sounds Abdominal Exam Abdominal exam: Present soft; Absent distention, tenderness, guarding, rebound or rigidity Extremities Exam Extremities exam: Present normal inspection, full ROM and normal capillary refill; Absent tenderness or calf tenderness Back Exam Back exam: Present normal inspection and full ROM; Absent tenderness Neurological Exam Neurological exam: Present alert and oriented X3 Psychiatric Psychiatric exam: Present normal affect and normal mood Skin Skin exam: Present warm, dry, intact and normal color Lymphatic Lymphatic Findings: no adenopathy Medical Decision Making Medical Records Medical records reviewed: No I reviewed the patient's medical records. Screening: Per USPSTF and CDC recommendations, given the prevalence of disease in our region, it is our hospital?s policy to screen for HIV and viral Hepatitis for all patients aged 18 and over and those with ongoing risk factors. Ketan Inquiry Pt receiving controlled substance: No
[2024-06-29 15:04] VITALS: BP 143/93; PULSE 72; RESP 18; TEMP 36.6; O2SAT 99; BMI 28.3
[2024-06-29 15:52] VITALS: BP 143/93; PULSE 72; RESP 18; TEMP 36.6
== END 2024-06-29 15:53 | disposition home or self-care (01) ==
PROVIDERS: Emergency Provider Nurse Practitioner Family; PCP Internal Medicine Adolescent Medicine
DX: J01.90 Acute sinusitis, unspecified (principal)
CPT/HCPCS: 99213; G0381

== ENCOUNTER 2025-04-03 13:15 | Outpatient (CLI) | payer BC, SELFPAY ==
--- OUTSIDE RECORDS SUMMARY | 2025-04-04 10:35 | XMS_ITS | Clinical Summary ---
Author Organization Healthcare Address [address] [place] [address] Care Team Providers Care Merchant Tailor Name Role Phone Unavailable Primary Care Provider Unavailabl e Social History Tobacco Use Types Packs/Day Years Used Date Smoking Tobacco: Every Day Alcohol Use Standard Drinks/Week Comments Yes 0 (1 standard drink = 0.6 oz pur e alcohol) Comments Unknown Sex and Gender Information Value Date Recorded Sex Assigned at Not on file Legal Sex Female 6:02 PM EDT Gender Identity Not on file Sexual Orientation Not on file Last Filed Vital Signs Vital Sign Reading Time Taken Comments Blood Pressure - - Pulse - - Temperature - - Respiratory Rate - - Oxygen Saturation - - Inhaled Oxygen Concentration - - Weight 61.7 kg (136 lb) 05/06/2014 9:12 AM EDT Height - - Body Mass Index - - Plan of Treatment Not on file
--- OUTSIDE RECORDS SUMMARY | 2025-04-04 10:35 | XMS_ITS | Clinical Summary ---
Author Organization [facility] Address [address] [place] [address] Care Team Providers Care Circular Saw Operator Name Role Phone Unavailable Primary Care Provider Unavailabl e Social History Tobacco Use Types Packs/Day Years Used Date Smoking Tobacco: Never Assessed Abuse Screen Answer Date Recorded Unsafe at Home or Work/School Not on file Feels Threatened by Someone? Not on file 05/2023 Does Anyone Keep You from Co ntacting Others or Doint Things Outside the Home? Not on file 05/10/2023 Physical Sign of Abuse Present Not on file 1 Housing Stability Answer Date Recorded Current Living Arrangements Not on file 04/30 Potentially Unsafe Housing Conditions Not on jenny e 05/10/2023 Family and Community Support Answer Cosmo e Recorded Help with Day-to-Day Activities Not on file 05/10/2023 Lonely or Isolated Not on file 05/10/2023 Employment Answer Date Recorded Do you want help finding or keeping work or a yudy b? Not on file 05/10/2023 Disabilities Answer Date Recorded Concentrating, Remembering, or Making Decisions Difficulty Not on file 05/10/2023 Doing Errands Independently Difficulty Not on fi le 05/10/2023 Education Answer Date Recorded Help with school or training? Not on file Preferred Language Not on file 05/10/2023 Comments Unknown Sex and Gender Information Value Date Recorded Sex Assigned at Not on file Legal Sex Female 12:08 PM EDT Gender Identity Not on file Sexual Orientation Not on file Last Filed Vital Signs Vital Sign Reading Time Taken Comments Blood Pressure 110/60 08/28/2013 9:23 AM EST Pulse 68 08/28/2013 9:23 AM EST Temperature 36.8 C (98.3 F) 08/28/2013 9:23 AM EST Respiratory Rate 20 08/28/2013 9:23 AM EST Oxygen Saturation - - Inhaled Oxygen Concentration - - Weight 61.2 kg (135 lb 0.2 oz) 08/28/2013 9:23 A M EST Height 170.2 cm (5' 7 ) 08/28/2013 9:23 AM EST Body Mass Index 21.15 08/28/2013 9:23 AM EST Plan of Treatment Health Maintenance Due Date Last Done Comments ANNUAL PHYSICAL 1989 Annual Gynecologic Pelvic an d Breast Exam 1989 HEPATITIS C SCREENING 1989 TDAP/TD VACCINES (1 - Tdap) 2008 COVID-19 Vaccine (2023-2 5 season) 2024 INFLUENZA VACCINE 04/30/2025 Pneumococcal Vaccine 0-49 Aged Out No longer eligible based on patient's age to complete this topic
== END 2025-04-03 23:59 ==
LOC: LAB.DROPOF 04-04 10:33
PROVIDERS: PCP Nurse Practitioner; Visit Provider Nurse Practitioner
DX: R10.2 Pelvic and perineal pain (principal)
CPT/HCPCS: 87086; 87088

== ENCOUNTER 2025-07-02 09:50 | Emergency (ER) | payer BC, SELFPAY ==
[2025-07-02 09:52] VITALS: BP 169/98; PULSE 80; RESP 20; TEMP 36.8; O2SAT 98; BMI 28.1
--- NOTE | 2025-07-02 09:53 | ED_ITS ---
<Statement entered by Maninder Mack DO - 07/02/25 15:57> I was consulted by the BRITTANEY, and we discussed the complexity of problems being addressed. I approved the treatment and management plan for this patient's care in the emergency department, thus performing a substantive portion of the medical decision making. Maninder Mack DO Discharge Plan Disposition Patient Disposition: Home, Self-Care Condition: Good Prescriptions Prescriptions: New ketorolac 10 mg tablet 10 mg PO Q6H PRN (Reason: pain) 5 Days Qty: 20 0RF ondansetron 4 mg tablet,disintegrating 4 mg PO Q6H PRN (Reason: nausea and vomiting) Qty: 10 0RF No Action topiramate [Trokendi XR] 50 mg capsule,extended release 24hr 50 mg PO DAILY metronidazole 500 mg tablet 500 mg PO BID 7 Days Qty: 14 0RF nitrofurantoin monohyd/m-cryst [Macrobid] 100 mg capsule 100 mg PO Q12H 5 Days Qty: 10 0RF Rx Instructions: must administer with a meal/food Referrals Follow up/Referrals: Simon Ribera MD [Primary Care Provider, Internal Medicine] - See instructions Pranav Elizondo MD [Staff Physician, [facility]] - See instructions Activity Restrictions/Add. Instructions Additional Instructions/Restrictions: Please return to the emergency department with any worsening signs or symptoms. Please take your antinausea medicine anti-inflammatory medication as prescribed. Please only utilize anti-inflammatory medication (ketorolac), as prescribed, do not take ibuprofen and that medication together please use either or please follow-up with PLAST[facility] MACHINE TENDER (Dr. Encarnacion) in the upcoming days/weeks. Clinical Impressions Clinical Impression: Left-sided pelvic pain, PCOS (polycystic ovarian syndrome), Endometriosis Instructions Patient Instructions: DI for Endometriosis, DI for Pelvic Pain Print Language Print Language: Setswana Discharge ED Provider: Maninder Mack General Adult HPI General Chief complaint: Abdominal Pain Stated complaint: low abd pain x 2 days Time Seen by Provider: 07/02/25 09:53 Mode of Arrival: Ambulatory Source of Information: Patient, Spouse and Medical Record Limitations: No Limitations History of Present Illness HPI narrative: 35-year-old female presents emergency department with left lower quadrant abdominal pain/pelvic pain that has been ongoing for the last 2 days, patient states she has some degree of chronic pelvic pain/lower abdominal pain over the last several months, but states the pain is worse over the last several days, patient also endorses remote history of data deficient E. coli , in her urine, 2 months ago, patient does endorse diarrhea for the last 2 days, denies any fever chills chest pain shortness of breath, does admit to nausea no vomiting, no hematochezia, no melena, no hematemesis no hemoptysis, no vaginal bleeding no vaginal discharge, does have some dyspareunia, no new sexual contacts or risky sexual behaviors, no other urinary type symptomatology. Patient has other past medical history consistent with PCOS, endometriosis, tic disorder, patient states that she has not had a regular menstrual cycle for the last 3 years since her endometrial ablation. Patient has been taking Gas-X , with little to no relief of her symptomatology. Patient is a non-smoker, denies any alcohol or drug use initial triage vitals are unremarkable. Please note that above description of symptoms, in this electronic medical record under categorization of recalled from ER triage doctor by RN are reflective of an initial nursing assessment, however, is not reflective of my full history and physical exam that was personally taken and clarified. Consequentially, this preceding description of symptoms, which may include the patient's categorized chief complaint in the EMR, do not reflect my personal clinical impression, and the ultimate description of history of present illness and patient stated complaints should be deferred to this section of the note. Unless stated otherwise or congruent with this section of the note, additional signs, symptoms, or incongruence should be interpreted as inaccurate with my clinical impression. Onset (ago): day(s) Related Data Home Medications ?Medication ?Instructions ?Recorded ?Confirmed topiramate 50 mg capsule,extended 50 mg PO DAILY 04/0304/03/25 release 24 hr (Trokendi XR) Previous Rx's ?Medication ?Instructions ?Recorded metronidazole 500 mg tablet 500 mg PO BID 7 days #14 t abs 04/03/25 nitrofurantoin 100 mg PO Q12H 5 days #10 ca ps 04/07/25 monohydrate/macrocrystals 100 mg capsule (Macrobid) ketorolac 10 mg tablet 10 mg PO Q6H PRN pain 5 days #20 07/02/25 tabs ondansetron 4 mg disintegrating 4 mg PO Q6H PRN nausea and 07/02/25 tablet vomiting #10 tabs Allergies Allergy/AdvReac Type Severity Reaction Status Date / Time No Known Allergies Allergy Verified 04/03/25 13:14 [facility] Disclaimer: The information contained in this section may have been updated after the patient was seen, as this information can be updated by other users. Medical History (Updated 07/02/25 @ 12:43 by JOB Looney) Vaginal discharge Family history of breast cancer in first degree relative PCOS (polycystic ovarian syndrome) Menorrhagia Dysmenorrhea Renal colic on right side Vaginal discharge Pelvic pain Hx of gastric ulcer Migraines Surgical History History of endometrial ablation History of hysteroscopy Hx of tubal ligation Hx of dilation and curettage Family History Mother Breast cancer Mother Family history of cardiac arrhythmia Grandmother Family history of diabetes mellitus Social History Smoking Status: Never smoker alcohol intake: current alcohol intake frequency: holidays/special occasions only substance use type: denies use current occupational status: employed Travel in the last 8 weeks?: None household members: family housing: house caffeine: Yes Have you lived/traveled outside US in past 30 days?: No Contact w/someone who lives/traveled outside US past 30 days?: No Exposure to someone with infectious disease in past 14 days?: No Do you have a fever (greater than 100.4 F or 38 C)?: No Have you tested positive for COVID-19?: No Exposed to someone with COVID-19 in past 14 days?: No Do you have a sore throat?: No Do you have a cough?: No Do you have any weakness?: No Do you have any diarrhea?: No Are you experiencing any unusual bleeding?: No Do you have any muscle aches/pain?: No Do you have any abdominal pain?: No Are you experiencing loss of taste or smell?: No Other Medical History Have you received the Flu Vaccine for this season: No Have you received the Pneumonia Vaccine: No ROS Obtained: Yes All systems reviewed & no additional complaints except as documented Physical Exam General General appearance: alert and in no apparent distress Head Head exam: atraumatic and normocephalic Eye Eye exam: Present PERRL and EOMI ENT ENT exam: Present mucous membranes moist Neck Neck exam: Present normal inspection Chest Chest inspection: Present normal inspection and symmetric chest wall rise Respiratory Respiratory exam: Present normal lung sounds bilaterally; Absent respiratory distress Cardiovascular Cardiovascular exam: Present regular rate and normal rhythm Abdominal Exam Abdominal exam: Present soft and tenderness; Absent guarding, rebound or rigidity Abdominal tenderness: Present LLQ, suprapubic and mild Extremities Exam Extremities exam: Present normal inspection Neurological Exam Neurological exam: Present alert and oriented X3 Psychiatric Psychiatric exam: Present normal affect Skin Skin exam: Present warm and dry Medical Decision Making Medical Records Medical records reviewed: Yes I reviewed the patient's medical records. Screening: Per USPSTF and CDC recommendations, given the prevalence of disease in our region, it is our hospital?s policy to screen for HIV and viral Hepatitis for all patients aged 18 and over and those with ongoing risk factors. Ketan Inquiry Pt receiving controlled substance: No Ketan was queried for this patient: No Vital Signs: 07/02/25 09:52 07/02/25 10:00 07/02/25 10:30 Temperature 98.3 F Temperature Source Oral Pulse Rate 65 62 Pulse Rate [Left Radial] 80 Respiratory Rate 20 Blood Pressure 169/98 H 178/100 H Blood Pressure [Right Arm] 169/98 H Blood Pressure Mean [Right Arm] 121 02 Sat by Pulse Oximetry 98 100 96 Oxygen Delivery Method Room Air Room Air Lab Data Lab results reviewed: Yes I reviewed the patient's lab results. Lab Results 07/02/25 10:00: Urine Color Yellow, Urine Appearance Sl cloudy, Urine pH 8.0, Ur Specific [place] 1.020, Urine Protein Negative, Urine Glucose (UA) Negative, Urine Ketones Negative, Urine Blood Negative, Urine Nitrate Negative, Urine Bilirubin Negative, Urine Urobilinogen 0.2, Ur Leukocyte Esterase Negative, Urine RBC None, Urine WBC Occasional, Ur Squamous Epith Cells None, Amorphous Sediment 2+, Urine Bacteria 1+, Urine HCG, Qual Negative 07/02/25 10:08: WBC 10.5, RBC 4.71, Hgb 13.5, Hct 41.3, MCV 87.7, MCH 28.7, MCHC 32.7, RDW 13.2, Plt Count 400, MPV 9.5, Neut % (Auto) 52.3, Lymph % (Auto) 36.6, Granite % (Auto) 8.0, Eos % (Auto) 1.6, Baso % (Auto) 0.7, Neut # (Auto) 5.5, Lymph # (Auto) 3.8, Granite # (Auto) 0.8, Eos # (Auto) 0.2, Baso # (Auto) 0.1, Sodium 144, Potassium 4.0, Chloride 107, Carbon Dioxide 25, Anion Gap 16.0 H, BUN 11, Creatinine 0.80, Estimated Creat Clear 129, Estimated GFR 81, Est GFR ( Amer) 98, Glucose 103 H, Lactate 0.7, Calcium 9.0, Total Bilirubin 0.3, AST 20, ALT 14, Alkaline Phosphatase 94, Total Protein 8.1, Albumin 4.4, Globulin 3.7 H, Albumin/Globulin Ratio 1.2, Lipase 65 07/02/25 10:08 07/02/25 10:08 Orders (Tests/Meds): ED MEDICATIONS Discontinued Medications Generic Name Dose Route Start Last Admin Trade Name Freq PRN Reason Stop Dose Admin Iopamidol 75 ml 07/02/25 10:47 07/02/25 10:48 Iopamidol-370 (76%);100ml Bottle IV 07/02/25 10:48 75 ml ONCE ONE Administration Ketorolac Tromethamine 15 mg 07/02/25 10:38 07/02/25 10:43 Ketorolac 15mg/Ml Vial IV 07/02/25 10:39 15 mg ONCE ONE Administration Ondansetron HCl 4 mg 07/02/25 10:38 07/02/25 10:43 Ondansetron 4mg/2ml Vial IV 07/02/25 10:39 4 mg ONCE ONE Administration Sodium Chloride 10 ml 07/02/25 10:47 07/02/25 10:48 Sodium Chloride 0.9% 10ml Syr (Rad Only) IV 07/02/25 10:48 10 ml ONCE ONE Administration ORDERS Category Date Time Status CT abdomen pelvis w con Stat Cat Scan 07/02/25 10:36 Completed US transvaginal Stat Exams 07/02/25 10:34 Completed Complete Blood Count Auto Diff Stat Lab 07/02/25 10:08 Completed Comprehensive Metabolic Panel Stat Lab 07/02/25 10:08 Completed Lactic Acid Stat Lab 12/03/25 10:08 Completed Lipase Stat Lab 07/02/25 10:08 Completed Urinalysis and Microscopic Stat Lab 07/02/25 10:00 Completed Urine , HCG Qual. Stat Lab 07/02/25 10:00 Completed Medical Decision Narrative: 35-year-old female presents to the emergency department with left lower quadrant/left-sided pelvic pain for the last 2 days, has had ongoing symptoms for months, she also endorses nausea and diarrhea for the last several days, differential diagnose include but not limited to, leiomyoma, ovarian torsion, ovarian cyst, malignancy, pancreatitis, diverticulitis, colitis, acute UTI, acute pyelonephritis, endometriosis among others. I discussed this patient's case with the attending physician Dr. Mack Will obtain basic laboratory studies, lipase level lactic acid level, UA, hCG qualitative, obtain transvaginal ultrasound, CT ab pelvis with contrast, will give 15 mg IV Toradol and 4 mg IV Zofran for pain and nausea. UA is unremarkable, no hematuria no nitrites no leukocyte esterase. hCG qualitative negative. CBC is unremarkable CMP is unremarkable, no lactic acidosis no lipase elevation. No RBCs, occasional WBCs noted on microscopic analysis, 2+ amorphous sediment, 1+ urine bacteria. I reviewed the patient's transvaginal ultrasound along with the corresponding radiologic report no evidence of ovarian torsion dilated fallopian tube noted on the left, no fluid noted within the cul-de-sac. I reviewed the patient's CT abdomen pelvis with contrast along the corresponding radiologic report, peripheral enhancement of the endometrium in the region of the fundus extending slight to the left with fluid in this portion of the endometrium etiology is unclear, gestational sac is not excluded, recommend correlation with beta-hCG values consider ultrasound as indicated, no evidence of hydronephrosis or renal stone identified. I discussed this patient's case with the on-call PLASTER MACHINE TENDER Dr. Encarnacion at approximately 12:30 PM, he believes this could be due to patient's endometriosis, or now having a menstrual cycle after endometrial ablation, he recommends follow-up in the P[facility] MACHINE TENDER office, with good pain control. Reexamination the patient approximately 12:39 PM, patient resting comfortably in bed, anti-inflammatory medications antinausea medicine did help the patient at otology here. I discussed all results with the patient and family the bedside I offered narcotic medication to the patient to be discharged home with, she did not this time would like to pursue nonnarcotic medication, thus will prescribe 10 mg p.o. Toradol every 6, for symptomatic relief, will also give 4 mg p.o. Zofran as needed for nausea vomiting, patient was given strict ED return precautions. Patient and family voiced understanding and agreement with current treatment plan/discharge plan, will follow-up with [facility]INE [facility]ER provider in the upcoming days/weeks. Critical Care Critical Care Time Critical Care Time: No
[2025-07-02 10:00] VITALS: BP 169/98; PULSE 65; O2SAT 100
--- OUTSIDE RECORDS SUMMARY | 2025-07-02 10:00 | XMS_ITS | Clinical Summary ---
Author Organization [facility] Address [address] [place] [address] Care Team Providers Care Computer Forwarding System Markup Clerk Name Role Phone Unavailable Primary Care Provider [...] 1989 TDAP/TD VACCINES (1 - Tdap) 2008 INFLUENZA VACCINE 02/28/2025 Pneumococcal Vaccine 0-49 Aged Out No longer eligible based on patient's age to complete this topic
--- OUTSIDE RECORDS SUMMARY | 2025-07-02 10:00 | XMS_ITS | Clinical Summary ---
Author Organization Healthcare Address [address] [place] [address] Care Team Providers Care Bus Person Name Role Phone Unavailable Primary Care Provider [...]
[2025-07-02 10:21] LABS: Microscopic, Urine URINE MICROSCOPIC (MICROSCOPIC)
[2025-07-02 10:23] LABS: Bilirubin,Urine Negative (Negative); Color,Urine YELLOW (Yellow); Glucose,Urine (UA) Negative (Negative); Ketones,Urine Negative (Negative); Leukocyte Esterase,Urine Negative (Negative); PH,Urine 8.0 (5.0-8.5); Protein,Urine Negative (Negative); Specific Gravity, Urine 1.020 (1.005-1.030); Urobilinogen,Urine 0.2 EU/dl (0.2)
[2025-07-02 10:25] LABS: Urine Pregnancy, HCG Qual. Negative (Negative)
[2025-07-02 10:27] LABS: Hematocrit 41.3 % (37.0-47.0); Hemoglobin 13.5 g/dL (12.2-16.2); Immature Granulocytes % 0.8 %; Mean Corpuscular HGB Conc 32.7 g/dL (31.8-35.4); Mean Corpuscular Hemoglobin 28.7 pg (27.0-31.2); Mean Corpuscular Volume 87.7 fl (81-99); Nucleated Red Blood Cells % 0 %; Platelet Count 400 K/mm3 (142-424); Red Blood Count 4.71 M/mm3 (4.20-5.40); Red Cell Distribution Width-SD 42.6 fL; White Blood Count 10.5 K/mm3 (4.8-10.8)
[2025-07-02 10:29] LABS: Amorphous Sediment,Urine 2+ /lpf; Bacteria,Urine 1+ /lpf; WBC,Urine Occasional #/hpf (0-3)
[2025-07-02 10:30] VITALS: BP 178/100; PULSE 62; O2SAT 96
[2025-07-02 10:30] LABS: Albumin Level 4.4 g/dl (3.5-5.0); Chloride 107 mmol/L (98-107); Potassium 4.0 mmoL/L (3.5-5.1); Sodium 144 mmol/L (136-145)
[2025-07-02 10:33] LABS: Alanine Aminotransferase 14 U/L (12-78); Albumin/Globulin Ratio 1.2 (1.1-1.8); Alkaline Phosphatase 94 U/L (38-126); Anion Gap 16.0 mEq/L (5-15); Aspartate Amino Transferase 20 U/L (14-36); Bilirubin,Total 0.3 mg/dl (0.2-1.3); Blood Urea Nitrogen 11 mg/dl (7-17); Calcium 9.0 mg/dl (8.4-10.2); Carbon Dioxide 25 mmol/L (22.0-30.0); Creatinine Clearance Estimated 129 mL/min (50-200); Creatinine,Serum 0.80 mg/dl (0.52-1.04); Estimated Glomerular Filt Rate 81 ml/min (>60); GFR (African American) 98 ML/MIN (>60); Globulin 3.7 g/dL (1.3-3.2); Glucose 103 mg/dl (74-100); Lipase 65 U/L (23-300); Total Protein,Serum 8.1 g/dl (6.3-8.2)
--- NOTE | 2025-07-02 10:34 | US_ITS ---
PROCEDURE INFORMATION: Exam: US Pelvis, Transvaginal, Non-Obstetric Exam date and time: 07/02/2025 10:45 AM Age: 35 years old Clinical indication: Pelvic pain; Prior surgery; Surgery date: 6+ months; Surgery type: Ablation x 3 yrs; Additional info: R/O torsion, left pernieal pain, HX of pcos TECHNIQUE: Imaging protocol: Real-time transvaginal pelvic (non-obstetric) ultrasound with image documentation. Transvaginal imaging was used for better evaluation of the endometrium, adnexa, and/or cervix. Total images: 1415 COMPARISON: No relevant prior studies available. FINDINGS: Uterus: Uterus is retroverted and measures 7.5 x 4.8 x 4.6 cm. Endometrial thickness is 7 mm. Right ovary/adnexa: Right ovary measures 4.3 x 1.9 x 1.8 cm. Blood flow is demonstrated to the right ovary. Left ovary/adnexa: Left ovary measures 3.3 x 2.3 x 2.0 cm. Multiple left ovarian cysts. Blood flow is demonstrated to the left ovary. Dilated fallopian tube noted on the left. Intraperitoneal space: No fluid noted within the cul-de-sac. Other findings: Postablation changes are noted. IMPRESSION: 1. No evidence of ovarian torsion. 2. Dilated fallopian tube noted on the left. 3. No fluid noted within the cul-de-sac.
--- NOTE | 2025-07-02 10:36 | CT_ITS ---
FINAL REPORT TECHNIQUE: Thin section axial images are obtained through the abdomen and pelvis after intravenous contrast. Reconstruction images were obtained from the axial data. Exam was performed using dose reduction techniques. CLINICAL HISTORY: LLQ pain COMPARISON: 10/25/2020 FINDINGS: LUNG BASES: Lung bases are clear. Heart size is normal. LIVER: Homogeneous. No focal lesion. GALLBLADDER/BILIARY SYSTEM: Gallbladder is present. No gallstones. No biliary dilatation. SPLEEN: Unremarkable. PANCREAS: Unremarkable. ADRENALS: Unremarkable. KIDNEYS/URETERS/BLADDER: No hydronephrosis, renal mass, or renal stone. The bladder is incompletely distended. GI TRACT: No small bowel obstruction or dilatation. Normal appendix. No acute colon abnormality. PELVIC ORGANS: The uterus is present. There is peripheral enhancement of the endometrium in the region of the fundus, which extends slightly to the left. Fluid is present in this portion of the endometrium. The ovaries are unremarkable in appearance. LYMPH NODES/RETROPERITONEUM/MESENTERY: No lymphadenopathy. No abdominal aortic aneurysm. ABDOMINAL WALL: The abdominal wall is intact. FREE FLUID: No ascites. BONES: No acute osseous abnormality. IMPRESSION: 1. Peripheral enhancement of the endometrium in the region of the fundus, extending slightly to the left, with fluid in this portion of the endometrium. The etiology is unclear. Gestational sac is not excluded, and recommend correlation with beta-hCG values. Consider ultrasound as indicated. 2. No evidence of hydronephrosis or renal stone is identified. Reviewed, Interpreted and Dictated by Stefani Rice MD Transcribed by Chantell Saeed Authenticated and [facility]
[2025-07-02] MEDS: KETOROLAC 15MG/ML VIAL 15 MG IV (10:43)
[2025-07-02] MEDS: ONDANSETRON 4MG/2ML VIAL 4 MG IV (10:43)
[2025-07-02] MEDS: IOPAMIDOL-370 (76%);100ML BOTTLE 75 ML IV (10:48)
[2025-07-02] MEDS: SODIUM CHLORIDE 0.9% 10ML SYR (RAD ONLY) 10 ML IV (10:48)
[2025-07-02 12:28] VITALS: BP 124/85; PULSE 53; O2SAT 99
[2025-07-02 12:30] VITALS: BP 125/91; PULSE 60; O2SAT 99
[2025-07-02 12:46] VITALS: BP 125/91; PULSE 57; RESP 20; TEMP 36.8; O2SAT 98
== END 2025-07-02 12:51 | disposition home or self-care (01) ==
PROVIDERS: Physician Assistant; Emergency Provider Student in an Organized Health Care Education/Training Program; PCP Internal Medicine Adolescent Medicine
DX: E28.2 Polycystic ovarian syndrome (principal); N80.9 Endometriosis, unspecified; R11.2 Nausea with vomiting, unspecified; G89.29 Other chronic pain; Z86.19 Personal history of other infectious and parasitic diseases
CPT/HCPCS: 74177; 76830; 80053; 81001; 81025; 83605; 83690; 85025; 96374; 96375; 99285; J1885; J2405; Q9967